=== PATIENT | female | born 1960 | race Caucasian/White ===

== ENCOUNTER → 2024-01-13 09:57 | Outpatient (REF) | payer OTHER, SELFPAY | LOC: HWWDC 09:57 | PROVIDERS: ATTENDING PHYSICIAN Internal Medicine; REFERRING PHYSICIAN Obstetrics & Gynecology | DX: Z12.31 Encounter for screening mammogram for malignant neoplasm of breast (principal) | CPT/HCPCS: 77063; 77067 ==

== ENCOUNTER → 2024-08-19 10:16 | Outpatient (REF) | payer MEDICARE, SELFPAY | LOC: HWRCS 10:16 | PROVIDERS: ATTENDING PHYSICIAN Internal Medicine; FAMILY PHYSICIAN Internal Medicine | DX: R00.2 Palpitations (principal); R07.89 Other chest pain; R05.3 Chronic cough | CPT/HCPCS: 71046; 93306 ==

== ENCOUNTER → 2024-08-26 08:16 | Outpatient (REF) | payer MEDICARE, SELFPAY | LOC: HWRCS 08:16 | PROVIDERS: ATTENDING PHYSICIAN Internal Medicine; FAMILY PHYSICIAN Internal Medicine | DX: R00.2 Palpitations (principal); R07.89 Other chest pain | CPT/HCPCS: 78452; 93017; A9500 ==

== ENCOUNTER 2024-11-15 07:57 | Day surgery (SDC) | payer MEDICARE, SELFPAY ==
[2024-11-02 10:11] VITALS: BMI 23.4
[2024-11-02 10:47] LABS: % Basophils 0.9 % (0-2); % Eosinophils 7.3 % (0-6); % Immature Granulocytes 0.3 % (0-0.5); % Lymphocytes 14.7 % (20.5-51.1); % Monocytes 10.6 % (1.7-9.3); % Neutrophils 66.2 % (42.2-75.2); Absolute Basophils 0.1 10^3/uL (0-0.2); Absolute Eosinophils 0.5 10^3/uL (0-0.7); Absolute Lymphocytes 0.9 10^3/uL (1.2-3.4); Absolute Monocytes 0.7 10^3/uL (0.1-0.6); Absolute Neutrophils 4.2 10^3/uL (1.4-6.5); Hematocrit 40.8 % (37.0-47.0); Hemoglobin 13.7 g/dL (12.0-16.0); Mean Corp Hgb Conc. 33.6 g/dL (33.0-37.0); Mean Corpuscular Hgb 29.8 pg (27.0-31.0); Mean Corpuscular Volume 88.7 fL (81.0-99.0); Nucleated Red Blood Cells % 0 %; Platelet Count 238 10^3/uL (130-400); Red Cell Dist. Width 13.3 % (11.5-14.5); White Blood Cell Count 6.3 10^3/uL (4.8-10.8)
--- NOTE | 2024-11-02 11:04 | HPS.HSE ---
Family Physician
-
Family Physician: Gael Donald
Chief Complaint
-
Paroxysmal atrial fibrillation.
History of Present Illness
The patient is a 64-year-old female presenting today for paroxysmal atrial fibrillation. The patient reports a history of chest pressure, palpitations, exertional shortness of breath, lightheadedness, and lethargy associated with this
diagnosis. She is on current pharmacological therapy with Metoprolol Succinate. She does report compliance with Eliquis for oral anticoagulation due to a [id number] of 3. She notes that her symptoms associated with her arrhythmia greatly interfere
with her activities of daily living and overall impact her quality of life. She is interested in pursuing with Affera atrial fibrillation ablation for further arrhythmia management. She denies any current complaints today such as chest pain and
shortness of breath at rest, palpitations, nausea, vomiting, diarrhea, cough, sore throat, or fever.
Medical History
Past Medical History
Past Medical History: Reports Other
Additional Past Medical History:
1. Paroxysmal atrial fibrillation, pharmacological therapy with Metoprolol Succinate and oral anticoagulation with Eliquis.
2. Elevated blood pressure without diagnosis of hypertension.
3. Hypercholesterolemia.
4. Paroxysmal atrial tachycardia.
5. PACs and PVCs.
6. Moderate mitral regurgitation.
7. Asthma, moderate and persistent.
8. Bronchiectasis with chronic cough.
9. Type 1 insulin-dependent diabetes with neuropathy.
10. GERD.
11. Colon polyp.
12. Chronic constipation.
13. Emeterio's thyroiditis.
Past Surgical History: Reports Other
Additional Past Surgical History:
1. Hysterectomy and salpingo-oophorectomy.
2. x2.
3. Right trigger finger release.
4. Bilateral cataract extraction.
5. Colonoscopy x3.
Social History
Tobacco: Non-smoker
Alcohol: Other (She reports drinking wine twice a week.)
Personal:
Living: Other (She lives with her in a 1 story home. )
Family History
Family History: Not pertinent
Allergies / Home Medications
Allergy/Medication List:
Home medications:
1. Eliquis 5 mg p.o. twice a day.
2. Calcium and vitamin D3 1 dose p.o. daily.
3. Neuriva 1 capsule p.o. daily.
4. Cranberry 900 mg p.o. daily.
5. Advair HFA inhaler 2 puffs inhaled twice a day.
6. Flonase 1 spray intranasal daily as needed.
7. Humalog insulin pump.
8. Levalbuterol 1 puff inhaled every 6 hours as needed.
9. Synthroid 100 mcg p.o. daily.
10. Lutein 40 mg p.o. daily.
11. Metoprolol Succinate 25 mg p.o. twice a day.
12. Multivitamin 1 tablet p.o. daily.
13. Pantoprazole 40 mg p.o. daily.
14. Miralax 17 grams p.o. daily.
15. Rosuvastatin 10 mg p.o. daily.
Allergies: Minocycline. Penicillin (remote).
Review of Systems
-
A 12 point ROS was completed and negative except as noted: Yes
Physical Exam
Vital Signs
Blood pressure 160/76. Heart rate 71. Respirations 18. Pulse ox 97% on room air.
Height 5 feet, 7.5 inches. Weight 68.8 kg. BMI 23.4.
Physical Exam
General: Well Developed, Well Nourished and No Apparent Distress
HEENT: NormoCephalic, Moist mucous membranes, Atraumatic and PERRLA
Respiratory: Clear
Cardiac: Regular Rhythm
GI: Soft, Non Tender and Non Distended
Musculoskeletal: No Edema and Normal Gait & Station
Skin: Warm and Dry
Neuro: AO x 3 and Nonfocal/grossly intact
Laboratory Results
-
11/02/24 10:18
DIAGNOSTIC STUDIES as of 11/02/2024: Sodium 137. Potassium 4.4. BUN 22. Creatinine 0.8. Glucose 178. Calcium 9.4. AST 25. ALT 21. Albumin 4.0. Type and screen O positive.
EKG 11/02/2024: Normal sinus rhythm.
Myocardial stress test 08/26/2024: Normal perfusion at 8 METS. No evidence of ischemia or infarct. Negative ECG for ischemia. Very frequent PACs with exercise. The exercise tolerance is average for given age and gender. Stress Risk is low risk study
(<1% HI or /year). Melendez Treadmill Score = +7. Systolic function is normal. The ejection fraction is 75%.
Echocardiogram 08/19/2024: Normal biventricular size and systolic function without regional wall motion abnormality. Estimated left ventricular ejection fraction is 60-65%. Moderate mitral regurgitation.
Impression/Plan
-
IMPRESSION/PLAN:
1. Paroxysmal atrial fibrillation: The patient is in need of an Affera atrial fibrillation ablation with Dr. Pema March on 11/15/2024. The benefits and risks of the procedure have been explained to the patient. The patient understands these risks
and wishes to proceed. She will hold her Eliquis the morning of her procedure.
[2024-11-02 11:49] LABS: ALT (SGPT) 21 U/L (0-35); AST (SGOT) 25 U/L (14-36); Alkaline Phosphatase 111 U/L (38-126); Blood Urea Nitrogen 22 mg/dl (7-17); Calcium 9.4 mg/dl (8.4-10.2); Carbon Dioxide 28 mmol/L (22-30); Chloride 101 mmol/L (98-107); Estimated Creatinine Clearance 69 ml/min; Glucose 178 mg/dl (70-99); Potassium 4.4 mmol/L (3.5-5.1); Sodium 137 mmol/L (135-145); Total Bilirubin 0.5 mg/dl (0.2-1.3); Total Protein 7.3 g/dl (6.3-8.2); eGFR > 60.00
[2024-11-15] VITALS (16 sets, daily range): BP systolic 95–156; BP diastolic 39–107
[2024-11-15 08:56] LABS: Glucose - Point of Care 100 mg/dl (70-99)
[2024-11-15 10:53] LABS: ACT-LR - POC 348 Seconds (116-155)
[2024-11-15 11:19] LABS: ACT-LR - POC 377 Seconds (116-155)
[2024-11-15 11:51] LABS: ACT-LR - POC 313 Seconds (116-155)
--- NOTE | 2024-11-15 12:12 | ITS.CL.ABL ---
Head Of [employer] - Ablation
Ablation
Procedure Report:
AFIB / A flutter ablation:
Ms. Jose is a very pleasant 64 yr old woman with medical history significant for symptomatic paroxysmal atrial fibrillation is here in the EP lab for atrial fibrillation ablation
Date of Procedure:
11/15/2024
Indications:
Symptomatic persistent atrial fibrillation
Pre-Operative Diagnosis:
Paroxysmal atrial fibrillation
Post-Operative Diagnosis:
Paroxysmal atrial fibrillation
Procedure Performed:
Atrial fibrillation ablation with wide area circumferential ablation (WACA) approach for pulmonary vein isolation
Posterior wall isolation
Performing Physician:
Pema March MD
Assistants:
EP staff
Anesthesia:
See anesthesia records
Detailed Description of the Procedure:
Written informed consent was obtained from the patient after a full explanation of the risks and benefits of the procedure including the risks of sedation and anesthesia.
The patient was brought to the electrophysiology laboratory in stable condition in fasting state. Continuous electrocardiographic and hemodynamic monitoring was initiated.
The initial rhythm was sinus.
The procedure site was meticulously prepared with surgical scrub and allowed to dry with no pooling. Sterile draping was applied to cover the procedure site. The image intensifier was draped with sterile bag and positioned over the patient. After
infusion of local anesthetic, vascular access was obtained under ultrasound guidance and sheaths were placed over guide wire as detailed below.
The images of the ultrasound of the femoral vessels were stored in patient chart.
Sheath and Catheter Placement:
In the right femoral vein, an 8-Gambian sheath was placed under ultrasound guidance for use during the ablation procedure. And mapping catheter was intermittently placed in the high right atrium, right ventricle, left atrium and left ventricle. In
the right femoral vein, a 9-Fr sheath was placed for use during intracardiac echo procedure.
The sheaths were upgraded as needed during the case. Intracardiac catheters were positioned using direct fluoroscopic guidance.� ICE catheter was placed in RA. The following catheters / sheaths were placed
Sheaths:
��������� Agilis sheath in right femoral vein upgraded from 8Fr in right femoral vein
��������� 9Fr in left femoral vein
Catheters:
��������� The Affera Sphere 9 catheter -bidirectional D/F� - at locations of HRA, RV, LA and LV.
��������� ICE catheter -AccuNav -� at locations of RA, SVC, and RV.
Heparin was initiated after the access was obtained.
Intracardiac ECHO:
An 8-Gambian AcuNav intracardiac ECHO (ICE) probe was advanced through the 9-Gambian sheath in the left femoral vein into the right atrium under fluoroscopic and ICE ultrasound image guidance and a baseline ECHO study was performed. The left atrial
size was dilated. There was trace tricuspid regurgitation. The aortic valve was grossly normal. There was normal left ventricular systolic function. There is trace pericardial effusion. The SETH has baseline low velocities. The pulmonary had good
flow identified.
During the procedure, ICE was used for monitoring of complications, guidance of trans-septal puncture, monitor the catheter position and tracking ablation lesions. No change in the pericardial space noted throughout the procedure.
Trans-septal Puncture:
Heparin was initiated and infused to maintain appropriate ACT. A J-tipped guidewire was advanced through into the superior vena cava under fluoroscopic and ICE guidance. The Agilis sheath was advanced into the superior vena cava over a guidewire.
The BRK needle was placed inside the Agilis sheath.� The apparatus was withdrawn until it was in contact with the fossa ovalis. The position was adjusted based on fluoroscopy and ultrasound images from ICE. Under fluoroscopic, hemodynamic and ICE
ultrasound guidance, left atrium was cannulated by advancing the needle. Once atrial septum was cannulated, the needle was pulled back and the guide wire was advanced through the needle into the left atrium. The guide wire was advanced into the left
superior pulmonary vein. Both the sheath and the dilator was advanced into the left atrium. The dilator with the needle was withdrawn. Blood was aspirated from the Agilis sheath and arterial blood confirmed. The sheath was flushed. Saline injection
noted into the left atrium on ICE. The waveform of the LA pressure was recorded. The mapping catheter was advanced in the Agilis sheath into the left pulmonary vein.
3D Electroanatomic Mapping:
Using the Sphere 9 Affera catheter advanced through Agilis sheath into the left atrium, an electroanatomic map (EAM) of the left atrium was created using [employer] mapping system with [employer] software. The map was used for localization of catheter
position and tacking of ablation lesions. The EAM of the left atrium showed a total of 4 PVs with two left and the two right sided pulmonary veins with all electrically connected to the body the LA. It showed no significant scar. The LA was severely
dilated in size.
Following the EAM, preparation were made for ablation.
Ablation:
Ablation # 1: Pulmonary vein Isolation:
Pulsed field ablation was performed using an open irrigation, bidirectional, contact sensing, dual energy ablation catheter (Affera sphere -9) by completing the circumferential lesions around the left and right pulmonary veins achieving pulmonary
vein isolation.
Confirmation of the PVI and bidirectional block:
Following achievement of entrance block at the pulmonary veins, pacing from the Sphere 9 affera catheter in each of the four veins at 20 milliamps for 4 milliseconds showed entrance and exit block.
The LA was mapped with [employer] mapping system with Prism-1 software in sinus rhythm confirming the line of block at the ablation lesions lines.
There was fractionated and low amplitudes signals noted in the posterior wall� making a perfect set up for atrial flutter in the posterior wall with slowing of conduction making a substance for reentry flutter.
Ablation # 2: Roof line Formation:
There was a clear channel of electrical activity left in the posterior wall with multiple CFAE and AF areas on the roof and ablation in that area increased the risk of atrial flutter and decision was made to create a roof line to block a slow
conduction. A set of pulsed field ablations were placed on the roof line connecting the left superior pulmonary vein ablation lesions to the right superior pulmonary vein lesions rings.
Ablation # 3: Posterior wall isolation with the Box lesions set Formation:
There was a significant fractionation seen in the posterior wall and LA AF foci along with CFAE made it clear as the posterior wall is critical in maintaining the atrial fibrillation and the decision was made to isolate the posterior wall by
creating a �Box� lesions.
A set of Pulsed field ablations were placed on the floor line connecting the left inferior pulmonary vein ablation lesions to the right inferior pulmonary vein lesions rings.
The sphere 9 in the posterior wall showed entrance block and the pacing from the posterior wall showed no exit from the box lesions confirming the exit block.
EP study:
Sinus Node Function: The sinus node functions are within acceptable normal range.
Atrioventricular Sheila Function: �Normal AV conduction noted.
Procedure End
ICE study was done again that showed no epicardial accumulation. No complications noted.
Following the completion of the EP study, catheters were removed. Protamine 30 mg was given at the end of the procedure and ACT was checked repeatedly. The sheaths were removed and hemostasis achieved with VASCADE and manual compression after
acceptable ACT is achieved.
Left atrial Pressure:
Pre-Procedure: Mean LA pressure was 8mmHg
Post-Procedure: Mean LA pressure was 8mmHg
Post-Procedure: Mean RA pressure was 4mmHg
Estimated Blood loss:
<10 cc
Specimens Removed:
None.
Implants / Devices:
None
Urine output:
None
Packs / Drains/ Tubes:
None
Instrument / Sponge Count Correct:
Yes
Complications of the Procedure:
None
Condition of Patient at Time of Transfer:
Hemodynamically stable with no neurological or vascular compromise.
Summary:
��������� Successful atrial fibrillation ablation with circumferential bidirectional line of block at pulmonary venin antra (Pulmonary vein isolation), roof flutter line creation, Posterior wall isolation.
Figures from the Procedure:
Figure 1: The electroanatomic mapping (EAM) of the left atrium with bipolar voltage (purple indicates normal electrical activity with red as no myocardial muscle electric activity indicating a line of block or scar.
[2024-11-15] MEDS: TYLENOL 1000 MG PO (14:33)
--- NOTE | 2024-11-15 15:14 | W.PN.UPDATE ---
Update Note
Progress Note Update
Pt seen post PFA. Right groin with vascade closure, no ht/bleeding. OOB ambulating, urinating without difficulty. Post EKG NSR 70s, no acute changes. Resume eliquis tonight at usual time. Followup with Dr. Christie as scheduled. Home today if groin
site/tele remain stable.
== END 2024-11-15 15:30 | disposition home or self-care (01) ==
LOC: CATH 07:57
PROVIDERS: ATTENDING PHYSICIAN Internal Medicine Cardiovascular Disease; FAMILY PHYSICIAN Internal Medicine; OTHER PHYSICIAN Internal Medicine
DX: I48.19 Other persistent atrial fibrillation (principal); I48.92 Unspecified atrial flutter; R03.0 Elevated blood-pressure reading, without diagnosis of hypertension; E78.00 Pure hypercholesterolemia, unspecified; I47.19 Other supraventricular tachycardia; I49.3 Ventricular premature depolarization; I49.1 Atrial premature depolarization; I34.0 Nonrheumatic mitral (valve) insufficiency; J45.909 Unspecified asthma, uncomplicated; J47.9 Bronchiectasis, uncomplicated; E10.40 Type 1 diabetes mellitus with diabetic neuropathy, unspecified; Z86.0100 Personal history of colon polyps, unspecified; K59.09 Other constipation; E06.3 Autoimmune thyroiditis; Z79.01 Long term (current) use of anticoagulants; Z79.51 Long term (current) use of inhaled steroids; Z96.41 Presence of insulin pump (external) (internal); Z79.899 Other long term (current) drug therapy; Z79.890 Hormone replacement therapy; Z88.0 Allergy status to penicillin
CPT/HCPCS: C1769; C1766; C1892; C1759; C1733; 36415; 80053; 82962; 85025; 85347; 86850; 86900; 86901; 93005; 93655; 93656; 93657; C1760

== ENCOUNTER → 2024-12-29 14:17 | Outpatient (REF) | payer MEDICARE, SELFPAY | LOC: DHSLP 14:17 | PROVIDERS: ATTENDING PHYSICIAN Internal Medicine; FAMILY PHYSICIAN Internal Medicine | DX: G47.30 Sleep apnea, unspecified (principal); R06.83 Snoring | CPT/HCPCS: 95800 ==

== ENCOUNTER → 2025-03-01 14:01 | Outpatient (REF) | payer MEDICARE, SELFPAY | LOC: WDC 14:01 | PROVIDERS: ATTENDING PHYSICIAN Internal Medicine | DX: Z12.31 Encounter for screening mammogram for malignant neoplasm of breast (principal) | CPT/HCPCS: 77063; 77067 ==